=== PATIENT | female | born 1980 | race Caucasian/White ===

== ENCOUNTER 2017-05-01 13:30 | Emergency (ER) | payer MEDICAID ==
[~2017-05-01] VITALS: Ht 160 cm; Wt 74.0 kg
[2017-05-01 13:35] VITALS: BP 115/71
--- NOTE | 2017-05-01 13:38 | NUR ---
PT TAKEN TO BED 4.
--- NOTE | 2017-05-01 13:39 | NUR ---
36F BIB FAMILY C/O RIGHT UPPER TOOTHACHE X YESTERDAY.DENIES N/V/D; SKIN IS PINK/WARM/DRY; AAOX4 WITH EVEN AND STEADY GAIT; LUNGS CLEAR BL; HR EVEN AND REGULAR; PT DENIES ANY FEVER, CP, SOB, OR COUGH AT THIS TIME; PATIENT STATES PAIN OF 8/10 AT THIS TIME; VSS; PATIENT POSITIONED FOR COMFORT; HOB ELEVATED; BEDRAILS UP X2; BED DOWN. ER MD MADE AWARE OF PT STATUS.
--- NOTE | 2017-05-01 14:31 | NUR ---
ER MD DR THOMAS EVALUATING PT AT BEDSIDE.
--- NOTE | 2017-05-01 14:40 | NUR ---
PT STS PAIN 5/10 ;DON'T WANT PAIN MED.
[2017-05-01 14:50] VITALS: BP 119/75
--- NOTE | 2017-05-01 14:50 | NUR ---
Patient discharged with v/s stable. Written and verbal after care instructions given and explained. Patient alert, oriented and verbalized understanding of instructions. Ambulatory with steady gait. All questions addressed prior to discharge. ID band removed. Patient advised to follow up with PMD. Rx of AMOXICILLIN, NORCO & IBUPROFEN given. Patient educated on indication of medication including possible reaction and side effects. Opportunity to ask questions provided and answered.
== END 2017-05-01 14:50 | disposition home or self-care (01) ==
LOC: MED 13:30
DX: K04.7 Periapical abscess without sinus (principal); K02.9 Dental caries, unspecified; F32.9 Major depressive disorder, single episode, unspecified; Z87.891 Personal history of nicotine dependence; F12.90 Cannabis use, unspecified, uncomplicated
CPT/HCPCS: 99283

== ENCOUNTER 2018-01-07 00:10 | Inpatient (IN) | payer MEDICARE ==
[2018-01-07] VITALS (7 sets, daily range): BP systolic 118–145; BP diastolic 68–88
[~2018-01-07] VITALS: Ht 162.6 cm; Wt 82.1 kg
--- NOTE | 2018-01-07 00:10 | NUR ---
Wilman olivas in [facility] - 01/07/18 at 0115 by CORNELL SIRIA Springer
--- NOTE | 2018-01-07 00:10 | NUR ---
TO ER CHAIR E
--- NOTE | 2018-01-07 00:30 | NUR ---
Call to Poison control. Recommendations: Charcoal 50 GM, EKG, airdrop systems technician, monitor for arrhythmias, If QRS >120 ms, give 2 amps sodium bicarb, give benzos for seizures, if asymptomatic x 6 hours, may d/c.
[2018-01-07] MEDS ORDERED: NACL 0.9% 1,000 ML IV ONE ×2 (00:36→02:05)
[2018-01-07] MEDS ORDERED: ACTIVATED CHARCOAL 50 GM/240 ML TUBE PO ONE (00:40)
--- NOTE | 2018-01-07 00:46 | NUR ---
MOVED TO ER BED 12
--- NOTE | 2018-01-07 00:50 | NUR ---
37/F BIB FAMILY W C/O ANXIETY AND ALOC S/P TAKING AMITRIPTYLIN X 20 MINS AGO. PT STATES SHE TOOK THE WHOLE BOTTLE OF AMITRIPTYLIN 25MG 30 TABLETS. PT NOTED WITH INCREASED ANXIETY, GCS 14, AO TO NAME AND PLACE. PMH: DEPRESSION, ANXIETY
[2018-01-07] MEDS ORDERED: AMIT25TA28 PO (00:56)
[2018-01-07 01:16] LABS: BASOPHILS # (AUTO) 0.1 K/uL (0.00-0.22); EOSINOPHILS # (AUTO) 1.1 K/uL (0-0.4); HEMATOCRIT 39.4 % (36-48); HEMOGLOBIN 12.6 g/dL (12.0-16.0); LYMPHOCYTES # (AUTO) 2.9 K/uL (2.5-16.5); LYMPHOCYTES % (AUTO) 26.1 % (20.5-51.1); MEAN CORPUSCULAR HEMOGLOBIN 26 pg (27-31); MEAN CORPUSCULAR HGB CONC 32 g/dL (33-37); MONOCYTES # (AUTO) 0.7 K/uL (0.8-1.0); MONOCYTES % (AUTO) 5.9 % (1.7-9.3); NEUTROPHILS # (AUTO) 6.4 K/uL (1.8-7.7); NEUTROPHILS % (AUTO) 57.1 % (42.2-75.2); PLATELET COUNT (AUTO) 255 K/uL (140-450); RED CELL DISTRIBUTION WIDTH 16.5 % (11.6-13.7); WHITE BLOOD COUNT (AUTO) 11.3 K/uL (4.8-10.8)
--- NOTE | 2018-01-07 01:20 | NUR ---
Patient appears to be resting comfortably in bed. Vital Signs within normal limits. Respirations even and unlabored.
[2018-01-07 01:30] LABS: PROTHROMBIN TIME 10.3 secs (10.8-13.4)
[2018-01-07 01:34] LABS: ALBUMIN 4.1 g/dL (3.4-5.0); ANION GAP 17.1 (8-16); ASPARTATE AMINOTRANSFERASE 15 U/L (15-37); CARBON DIOXIDE 24.4 mmol/L (21-32); CHLORIDE 103 mmol/L (98-107); GFR ARICAN-AMERICAN 80 mL/min (>90); GLUCOSE 161 mg/dL (74-106); POTASSIUM 3.5 mmol/L (3.5-5.1); SALICYLATE 3.3 mg/dL (2.8-20.0); SODIUM SERUM 141 mmol/L (136-145); TOTAL BILIRUBIN 0.1 mg/dL (0.0-1.0); UREA NITROGEN, BLOOD 16 mg/dL (7-18)
[2018-01-07 01:35] LABS: ACETAMINOPHEN < 0.5 ug/ml (10-30)
[2018-01-07 01:42] LABS: EOSINOPHILS % (AUTO) 9.9 % (0.0-4.0)
--- NOTE | 2018-01-07 01:45 | NUR ---
# 16 FR Fuller catheter with 10 ml utilizing sterile technique. Immediate return of 5 ml CLEAR AND YELLOW urine noted. Bedside drainage bag placed below level of bladder. Urine sample collected and sent to lab. Pt tolerated procedure WELL.
[2018-01-07] MEDS ORDERED: ACETAMINOPHEN 325 MG TAB PO PRN (02:10)
[2018-01-07] MEDS ORDERED: HYDROcodone/APAP 7.5/325 MG 1 TAB PO PRN (02:10)
[2018-01-07] MEDS ORDERED: ONDANSETRON 4 MG/2 ML VIAL IVP PRN (02:10)
[2018-01-07] MEDS ORDERED: LORazepam 2 MG/ML VIAL IVP PRN (02:15)
[2018-01-07] MEDS ORDERED: NACL 0.9% 1,000 ML IV SCH (02:15)
[2018-01-07 02:29] LABS: BARBITURATE, URINE NEG. ng/ml (NEG <=200); BENZODIAZEPINE, URINE NEG. ng/mL (NEG <=200); CANNABINOID, URINE POS. ng/mL (NEG <=50); COCAINE, URINE NEG. ng/mL (NEG <=300); OPIATE, URINE NEG. ng/mL (NEG <=2000); PHENCYCLIDINE SCREEN,URINE NEG. ng/mL (NEG <=25)
--- NOTE | 2018-01-07 02:35 | NUR ---
Patient will be admitted to [facility]. Admited to ICU. Will go to room 7. Belongings list completed. BEDSIDE Report to SELINA SAMAYOA.
--- NOTE | 2018-01-07 02:40 | NUR ---
PT NEW ADMIT,COME FROM ER WITH SHERRI WITH 2 STAFF. PT IS OVERDOSE AMITRIPTYLINE ,REPORT GIVEN BY THALIA SAMAYOA, PER THALIA PT SAID SHE TAKING 30 TABS OF AMITRIPTYLINE 25 MG TO HELP HER TO SLEEP. PT TOLD MD SHE TOOK 15 TABLETS. PT IS DROWSY,DEEP SLEEP, LETHARGIC, RESPOND TO DEEP PAIN. TRANSFER PT TO BED WITH 4 PERSONAL.PT IN ROOM AIR.JEY LUNGS SOUND CLEAR. SR TO ST ON MONITOR.IV LINE TO RIGHT AC NO 18.PER REPORT 2 LITER NS BOLUS WAS GIVEN.F/C INTACT WITH YELLOW CLEAR URINE NOTED. SKIN INTACT.GENTLE CARE GIVEN.KEPT CLEAN AND DRY. CONT TO MONITOR CLOSELY.
[2018-01-07 02:44] LABS: APPEARANCE,URINE CLEAR (CLEAR); BILIRUBIN,URINE NEGATIVE (NEGATIVE); BLOOD, URINE 1+ (NEGATIVE); COLOR,URINE YELLOW (YELLOW); LEUKOCYTE ESTERASE ,URINE NEGATIVE (NEGATIVE); NITRITE, URINE NEGATIVE (NEGATIVE); PH,URINE 6.5 (5.0-9.0); UGLUCOSE 1+ (NEGATIVE)
[2018-01-07 02:57] LABS: CHOL/HDL RATIO 3.7 (1-4.5); FREE T4 (FREE THYROXINE) 0.84 ng/dL (0.76-1.46); MAGNESIUM 2.1 mg/dL (1.8-2.4); PHOSPHORUS 3.9 mg/dL (2.5-4.9); THYROID STIMULATING HORMONE 6.65 uIU/mL (0.34-3.74)
--- NOTE | 2018-01-07 03:00 | NUR ---
START WITH NS AT 200 CC/HR. PT V/S T 97,BP 139/74.P 104,SPO2 97%. PT STILL ON DEEP SLEEP.
[2018-01-07 03:09] LABS: CALCIUM OXALATE CRYSTALS,UR 0-10 /HPF (None Seen); RBC,URINE 0-5 (RARE) /HPF (0-5)
--- NOTE | 2018-01-07 04:00 | NUR ---
EKG DONE BY RT
--- NOTE | 2018-01-07 04:10 | NUR ---
COME TO SEE PT.
--- NOTE | 2018-01-07 06:15 | NUR ---
PT HAS PROJECTILE VOMITING X1 LARGE ABOUT 300 CC, BLACKISH COLOR/CHARCOAL. NO S/S OF RESP DISTRESS,NO S/S OF PAIN.AM CARE,SPONGE BATH GIVEN. F/C CARE GIVEN. KEPT PT CLEAN AND DRY.FALL PRECAUTION CONTINUE.
--- NOTE | 2018-01-07 06:25 | NUR ---
VERBALIZED PT IS UNDER POISON PRECAUTION,IF PT HAVING TACHYCARDIA,SEIZURE,QRS WIDENING AND HYPERTENSION CALL POISON CONTROL .
--- NOTE | 2018-01-07 07:03 | NUR ---
PATIENT HAS BEEN SCREENED AND CATEGORIZED LOW NUTRITION RISK. PATIENT WILL BE SEEN WITHIN 7 DAYS OF ADMISSION. 01/13/18 SHELBY TRIVEDI MS, RDN
--- NOTE | 2018-01-07 07:13 | NUR ---
RECEIVED REPORT FROM NOC SHIFT RN. PT SLEEPING IN BED, DROWSY. OPENS EYES ON STIMULATION. SELF REPOSITIONING. SR ON MONITOR. PUPILS REACTIVE TO LIGHT. SKIN DRY AND WARM TO TOUCH. LUNGS SOUND DIMINISHED. RIGHT AC 18 G, INTACT. NS RUNNING AT 200 ML/HR. ABODMEN SOFT ROUND AND NON-TENDER. HYPOACTIVE BOWEL SOUND. SKIN INTACT. ANDERS'S CATH IN PLACE DRAINING CLEAR YELLOW URINE. BED IN LOW POSITION, LOCKED. PT ON CLOSE MONITORING.
[2018-01-07 07:16] LABS: BASOPHILS % (AUTO) 0.5 % (0.0-2.0); EOSINOPHILS # (AUTO) 0.1 K/uL (0-0.4); EOSINOPHILS % (AUTO) 0.9 % (0.0-4.0); HEMATOCRIT 37.1 % (36-48); HEMOGLOBIN 11.8 g/dL (12.0-16.0); LYMPHOCYTES % (AUTO) 9.9 % (20.5-51.1); MEAN CORPUSCULAR HEMOGLOBIN 26 pg (27-31); MEAN CORPUSCULAR HGB CONC 32 g/dL (33-37); MEAN CORPUSCULAR VOLUME 82.1 fL (80-94); MONOCYTES # (AUTO) 0.4 K/uL (0.8-1.0); MONOCYTES % (AUTO) 3.8 % (1.7-9.3); NEUTROPHILS # (AUTO) 8.6 K/uL (1.8-7.7); NEUTROPHILS % (AUTO) 84.9 % (42.2-75.2); PLATELET COUNT (AUTO) 221 K/uL (140-450); RED BLOOD CELL COUNT(AUTO) 4.52 MIL/uL (4.20-5.40); RED CELL DISTRIBUTION WIDTH 16.4 % (11.6-13.7); WHITE BLOOD COUNT (AUTO) 10.1 K/uL (4.8-10.8)
[2018-01-07 07:33] LABS: ANION GAP 16.5 (8-16); CARBON DIOXIDE 21.2 mmol/L (21-32); CREATININE 0.7 mg/dL (0.6-1.3); POTASSIUM 3.7 mmol/L (3.5-5.1)
[2018-01-07 07:46] LABS: MAGNESIUM 1.9 mg/dL (1.8-2.4); PHOSPHORUS 2.1 mg/dL (2.5-4.9)
--- NOTE | 2018-01-07 08:02 | NUR ---
CALLED DR. ELDRIDGE. VARIFIED THAT PT IS NOT 5150. OKAY TO PUT SCDS ON. MADE AWARE THAT PT IS NOT ABLE TO TAKE PO MED COLACE BECAUSE OF DROWSINESS SAID OKAY.
--- NOTE | 2018-01-07 08:26 | NUR ---
BOYFRIEND AT BEDSIDE. UPDATED PT CONDITION TO BOYFRIEND.
[2018-01-07] MEDS: DOCUSATE SODIUM 100 MG GELCAP PO SCH ×2 (08:29→21:35)
[2018-01-07] MEDS: SODIUM PHOS / POTASSIUM PHOS 1 PKT PDR PO SCH ×3 (08:54→17:00)
[2018-01-07] MEDS: LACTOBACILLUS RHAMNOSUS GG 1 EACH CAP PO SCH (08:54)
--- NOTE | 2018-01-07 09:01 | NUR ---
PT THREW UP. KEPT HOB ELEVATED. NOTIFIED DR. ELDRIDGE. WILL FOLLOW UP ON ORDER.
--- NOTE | 2018-01-07 10:52 | NUR ---
RECEIVED CALL FROM POISON CONTROL. TALKED TO PJ OLGUIN PT CONDITION. CAN CALL AT [phone].
--- NOTE | 2018-01-07 10:54 | NUR ---
PT O2 FLUCTUATING FROM 78-89%. KEPT HOB ELEVATED. KEPT PT ON COMFORTABLE POSITION. RT NOTIFIED RT. CALLED DOCTOR'S OFFICE, NOTIFIED DR. PRIETO. NO RESPIRATORY DISTRESS NOTED ATV THIS TIME. RT AT BEDSIDE.
--- NOTE | 2018-01-07 12:32 | NUR ---
FAXED INFORMATION TO DR. BURCH FOR PSYCH CONSULT.
--- NOTE | 2018-01-07 13:05 | NUR ---
PT SLEEPING IN BED COMFORTABLY. OPENS EYES UP ON CALLING BUT STILL SLEEPY. NO ACUTE RESPIRATORY DISTRESS NOTED. VS WNL. WILL CONTINUE TO MONITOR.
[2018-01-07] MEDS ORDERED: Z-GUARD PASTE TP ONE (13:40)
[2018-01-07] MEDS: NACL 0.9% 1,000 ML IV SCH (13:54)
[2018-01-07] MEDS ORDERED: PROBIOTIC SCREEN 1 EA MISC MC PRN (14:05)
--- NOTE | 2018-01-07 16:03 | NUR ---
PT IS ALERT AND ORIENTED X4. VERBALIZES NEEDS. ABLE TO BRUSH HER TEETH AND WASH HER FACE INDEPENDENTLY. NOTIFIED DR. BEATTY. HECTOR TO GIVE PO MEDS FOR 1700. WILL FOLLOW UP ON ORDER.
--- NOTE | 2018-01-07 16:05 | NUR ---
DR. BEATTY AT BEDSIDE EVALUATING PT.
--- NOTE | 2018-01-07 17:31 | NUR ---
DR. MCNAMARA AT BEDSIDE EVALUATING PT.
--- NOTE | 2018-01-07 18:53 | NUR ---
PT SLEEPING IN BED COMFORTABLY. NO ACUTE RESPIRATORY DISTRESS NOTED. WILL CONTINUE TO MONITOR.
--- NOTE | 2018-01-07 19:31 | NUR ---
ENDORSED TO TELE NURSE MAURIZIO FOR CONTINUITY OF CARE. PT ON STABLE CONDITION.
--- NOTE | 2018-01-07 19:45 | NUR ---
RECEIVED PATIENT FROM ICU. AAOX4. NO C/O PAIN. NO RESP DISTRESS NOTED. PT ON ROOM AIR. IV TO RIGHT AC #18, PATENT AND INTACT. PT HAS ANDERS CATH, DRAINING LIGHT YELLOW URINE. ORIENTED PT TO THE ROOM. DISCUSSED PLAN OF CARE, PT VERBALIZED UNDERSTANDING. SAFETY PRECAUTION IN PLACE. CALL LIGHT WITHIN REACH.
--- NOTE | 2018-01-07 19:55 | NUR ---
PATIENT TRANSFERRED OUT OF ICU AT 194 TO TELE 111B, ENDORSED PATIENT TO YANELY SAMAYOA. PATIENT IS AAOX4, DENIES PAIN, LAST VS AT 1899 WAS 98.3-69-123/78-20-98%.
--- NOTE | 2018-01-07 21:30 | NUR ---
D/C ANDERS CATH. NO C/O PAIN. PT TOLERATED WELL.
--- NOTE | 2018-01-07 21:40 | NUR ---
PT REFUSED COLACE. PT STATED " I DON'T NEED IT". DR. MILLER MADE AWARE.
--- NOTE | 2018-01-07 22:15 | NUR ---
PT REFUSED SCD'S. PT STATED "I DON'T NEED IT. I CAN WALK".
[2018-01-08] VITALS: BP 126/78
--- NOTE | 2018-01-08 00:15 | NUR ---
PT SLEEPING BUT EASILY AROUSABLE. NO S/S OF DISTRESS. CALL LIGHT WITHIN REACH.
--- NOTE | 2018-01-08 03:30 | NUR ---
PT SLEEPING BUT WAKES EASILY. RESP EVEN AND UNLABORED. NO S/SO OF PAIN OR DISCOMFORT.
[2018-01-08 04:00] VITALS: BP 129/56
--- NOTE | 2018-01-08 06:00 | NUR ---
PT RESTING IN BED WITH EYES CLOSED. NO S/S OF DISTRESS.
--- NOTE | 2018-01-08 07:30 | NUR ---
ENDORSED PT TO DAY SHIFT NURSE. PT IN STABLE CONDITION
[2018-01-08 07:53] LABS: ANION GAP 14.8 (8-16); CARBON DIOXIDE 23.2 mmol/L (21-32); CREATININE 0.8 mg/dL (0.6-1.3)
[2018-01-08 07:58] LABS: BASOPHILS # (AUTO) 0.1 K/uL (0.00-0.22); BASOPHILS % (AUTO) 0.8 % (0.0-2.0); EOSINOPHILS # (AUTO) 0.6 K/uL (0-0.4); EOSINOPHILS % (AUTO) 9.7 % (0.0-4.0); HEMATOCRIT 36.5 % (36-48); HEMOGLOBIN 11.6 g/dL (12.0-16.0); LYMPHOCYTES % (AUTO) 29.6 % (20.5-51.1); MEAN CORPUSCULAR HEMOGLOBIN 26 pg (27-31); MEAN CORPUSCULAR HGB CONC 32 g/dL (33-37); MEAN CORPUSCULAR VOLUME 82.8 fL (80-94); MONOCYTES # (AUTO) 0.5 K/uL (0.8-1.0); MONOCYTES % (AUTO) 7.6 % (1.7-9.3); NEUTROPHILS # (AUTO) 3.5 K/uL (1.8-7.7); NEUTROPHILS % (AUTO) 52.3 % (42.2-75.2); PLATELET COUNT (AUTO) 214 K/uL (140-450); RED BLOOD CELL COUNT(AUTO) 4.41 MIL/uL (4.20-5.40); RED CELL DISTRIBUTION WIDTH 16.3 % (11.6-13.7); WHITE BLOOD COUNT (AUTO) 6.6 K/uL (4.8-10.8)
[2018-01-08 08:00] VITALS: BP 128/59
[2018-01-08] MEDS: DOCUSATE SODIUM 100 MG GELCAP PO SCH (08:30)
[2018-01-08] MEDS: NACL 0.9% 1,000 ML IV SCH (08:30)
[2018-01-08] MEDS: LACTOBACILLUS RHAMNOSUS GG 1 EACH CAP PO SCH (08:30)
[2018-01-08] MEDS: SODIUM PHOS / POTASSIUM PHOS 1 PKT PDR PO SCH (08:30)
--- NOTE | 2018-01-08 10:25 | NUR ---
PT UP OUT OF BED WITHOUT PROBLEM, AMBULATES WITH STEADY GAIT TO BATHROOM, SPONTANEOUS VOID, DENIES DYSURIA, WILL CONTINUE TO MONITOR.
[2018-01-08 12:00] VITALS: BP 142/88
[2018-01-08] MEDS ORDERED: NITR100C7 PO (12:10)
[2018-01-08] MEDS ORDERED: LACT1.4C PO (12:10)
--- NOTE | 2018-01-08 13:15 | NUR ---
DC INSTRUCTION AND RX GIVEN AND EXPLAINED TO PT, PT VERBALIZED FULL UNDERSTANDING, IV DC'D, CATH TIP INTACT, BLEEDING CONTROLLED, DC HOME NOW WITH .
--- NOTE | 2018-01-09 14:45 | NUR ---
CM NOTE RETRO REVIEW FAXED TO [facility] / FAX# [phone]
== END 2018-01-08 13:15 | disposition home or self-care (01) | DRG 812 ==
LOC: MED 00:10 → MIC 02:09 → MTU 19:37
PROVIDERS: ADMIT Student in an Organized Health Care Education/Training Program; ATTEND Student in an Organized Health Care Education/Training Program
DX: T43.011A Poisoning by tricyclic antidepressants, accidental (unintentional), initial encounter (principal); G92 Toxic encephalopathy; F32.9 Major depressive disorder, single episode, unspecified; N39.0 Urinary tract infection, site not specified; D72.829 Elevated white blood cell count, unspecified; E11.9 Type 2 diabetes mellitus without complications; F41.9 Anxiety disorder, unspecified; E02 Subclinical iodine-deficiency hypothyroidism; G47.00 Insomnia, unspecified; F17.210 Nicotine dependence, cigarettes, uncomplicated; F41.1 Generalized anxiety disorder; F41.0 Panic disorder [episodic paroxysmal anxiety]; F12.90 Cannabis use, unspecified, uncomplicated; Y92.89 Other specified places as the place of occurrence of the external cause; Z79.899 Other long term (current) drug therapy
CPT/HCPCS: 36415; 36600; 51702; 70450; 71045; 80048; 80053; 80305; 81001; 82150; 82803; 82948; 83036; 83605; 83690; 83735; 84100; 84439; 84443; 84484; 85025; 85610; 87081; 87086; 93005; 96360; 99291; C1758; G0480; G0482; J0696; J7030; J7060; Q0092

== ENCOUNTER 2023-04-18 11:08 | Emergency (ER) | payer BC, MEDICARE ==
[~2023-04-18] VITALS: Ht 162.6 cm; Wt 77.1 kg
[~2023-04-18 11:08] MED LIST: LACT1.4C PO; NITR100C7 PO
[2023-04-18 11:24] VITALS: BP 130/79; PULSE 68; RESP 18; TEMP 97.8; O2SAT 99
== END 2023-04-18 14:30 | disposition left against medical advice (07) ==
LOC: MED 11:08
DX: R10.31 Right lower quadrant pain (principal); Z53.21 Procedure and treatment not carried out due to patient leaving prior to being seen by health care provider
CPT/HCPCS: 99281